=== PATIENT | male | born 1980 | race Caucasian/White ===

== ENCOUNTER → 2016-11-25 | Outpatient (CLI) | payer BC ==
[~2016-11-25] MED LIST: IBUPROFEN800 MG PO; LEVAQUIN 750MG750 MG PO; LORTAB 5/500 501 TAB PO; LUNESTA3 MG PO; WELCHOL 625MG625 MG PO; XANAX XR0.5 MG PO
== END ==
LOC: MHCPAIN 12:27
DX: G89.29 Other chronic pain (principal); M47.27 Other spondylosis with radiculopathy, lumbosacral region; M96.1 Postlaminectomy syndrome, not elsewhere classified; Z87.891 Personal history of nicotine dependence
CPT/HCPCS: G0463

== ENCOUNTER → 2016-12-05 | Outpatient (CLI) | payer BC | LOC: BHSO 10:27 | DX: F43.10 Post-traumatic stress disorder, unspecified (principal) | CPT/HCPCS: 90791-AI ==

== ENCOUNTER → 2016-12-12 | Outpatient (CLI) | payer BC | LOC: MHCPAIN 07:23 | DX: M47.27 Other spondylosis with radiculopathy, lumbosacral region (principal) | CPT/HCPCS: J1100; Q9967 ==

== ENCOUNTER → 2016-12-19 | Outpatient (CLI) | payer BC | LOC: BHSO 10:27 | DX: F43.10 Post-traumatic stress disorder, unspecified (principal) ==

== ENCOUNTER → 2017-01-16 | Outpatient (CLI) | payer BC | LOC: BHSO 10:02 | DX: F43.10 Post-traumatic stress disorder, unspecified (principal) ==

== ENCOUNTER → 2017-04-14 | Outpatient (CLI) | payer OTHER | LOC: BHSO 14:56 | DX: F43.10 Post-traumatic stress disorder, unspecified (principal) ==

== ENCOUNTER → 2017-05-19 | Outpatient (CLI) | payer OTHER | LOC: BHSO 13:55 | DX: F43.10 Post-traumatic stress disorder, unspecified (principal) ==

== ENCOUNTER → 2017-09-15 | Outpatient (CLI) | payer BC | LOC: BHSO 15:03 | DX: F43.10 Post-traumatic stress disorder, unspecified (principal) | CPT/HCPCS: G0463 ==

== ENCOUNTER → 2017-10-20 | Outpatient (CLI) | payer BC | LOC: BHSO 13:54 | DX: F43.10 Post-traumatic stress disorder, unspecified (principal) | CPT/HCPCS: G0463 ==

== ENCOUNTER → 2017-12-29 | Outpatient (CLI) | payer BC | LOC: BHSO 09:43 | DX: F33.41 Major depressive disorder, recurrent, in partial remission (principal) | CPT/HCPCS: G0463 ==

== ENCOUNTER → 2018-04-15 | Outpatient (CLI) | payer BC | LOC: BHSO 09:18 | DX: F43.10 Post-traumatic stress disorder, unspecified (principal) | CPT/HCPCS: G0463 ==

== ENCOUNTER → 2018-09-02 | Outpatient (CLI) | payer BC | LOC: BHSO 10:11 | DX: F43.10 Post-traumatic stress disorder, unspecified (principal) | CPT/HCPCS: G0463 ==

== ENCOUNTER → 2019-03-10 | Outpatient (CLI) | payer BC | LOC: BHSO 10:01 | DX: F43.10 Post-traumatic stress disorder, unspecified (principal) | CPT/HCPCS: G0463 ==

== ENCOUNTER → 2019-09-09 | Outpatient (CLI) | payer BC | LOC: BHSO 11:38 | DX: F43.10 Post-traumatic stress disorder, unspecified (principal) | CPT/HCPCS: G0463 ==

== ENCOUNTER → 2020-02-21 | Outpatient (CLI) | payer BC | LOC: BHSO 09:42 | DX: F43.10 Post-traumatic stress disorder, unspecified (principal) | CPT/HCPCS: G0463 ==